=== PATIENT | female | born 2000 | race Caucasian/White ===

== ENCOUNTER 2021-10-19 02:09 | Emergency (ER) | payer OTHER ==
--- NOTE | 2021-10-19 02:29 | ED Physician Documentation ---
PD HPI HEENT - Stated complaint Stated Complaint: SORE THROAT, EAR PX - Chief complaint Chief Complaint: Heent - History obtained from History obtained from: Patient - History of Present Illness Timing - onset: Other (sore throat x 3 days, right ear pain started 20:00 tonight) Timing - details: Gradual onset Location: Right ear Improves: Nothing Worsens: Swalllowing Associated symptoms: No: Fever Recently seen: Not recently seen Review of Systems Constitutional: denies: Fever Ears: reports: Ear pain Throat: reports: Sore throat Respiratory: denies: Dyspnea, Cough PD PAST MEDICAL HISTORY - Past Medical History Past Medical History: No - Past Surgical History Past Surgical History: No - Present Medications Home Medications: Ambulatory Orders Medication Instructions Recorded Confirmed No Known Home Medications 10/19/21 10/19/21 - Allergies Allergies/Adverse Reactions: Allergies Allergy/AdvReac Type Severity Reaction Status Date / Time No Known Drug Allergies Allergy Verified 10/19/21 02:22 - Social History Does the pt smoke?: No Smoking Status: Never smoker Does the pt drink ETOH?: Yes Does the pt have substance abuse?: No - Immunizations Immunizations are current?: Yes PD ED PE NORMAL - Vitals Vital signs reviewed: Yes - General General: Alert and oriented X 3, No acute distress, Well developed/nourished PD ED PE EXPANDED - HEENT HEENT: Ears normal, Pharyngeal erythema, Swollen tonsils (predominantly right- sided swelling in posterior oropharynx) Results - Vitals Vitals: Oxygen O2 Source Room air - Labs Labs: Microbiology 10/19/21 02:18 Group A Strep Throat Culture - Final Throat MIXED OROPHARYNGEAL CORINNE PRESENT. NO BETA STREP PRESENT IN CULTURE. Laboratory Tests 10/19/21 02:18 Group A Strep Rapid Negative PD MEDICAL DECISION MAKING - ED course Complexity details: reviewed results, considered differential, d/w patient ED course: rapid strep negative. Result d/w patient. She is given decadron, ibuprofen, and take-home vicodin. Departure - Departure Disposition: 01 Home, Self Care Clinical Impression: Pharyngitis Condition: Good Instructions: ED Pharyngitis Viral Report Pending Comments: your strep test was negative tonight. At this point the most likely explanation for your symptoms (sore throat and ear pain) is a viral infection. There is no specific treatment (such as an antibiotic). You were given a one-time dose of steroid (decadron) tonight which often helps with the swelling and pain of pharyngitis; it takes several hours to start to take effect. You were also given ibuprofen which should improve the symptoms within the following hour. If the ibuprofen does not provide adequate pain relief, you can take the hydrocodone/acetaminophen provided (one tablet every 6 hours as needed for pain). Discharge Date/Time: 10/19/21 03:18
[2021-10-19 02:41] LABS: RAPID STREP SCREEN Negative (Negative)
[2021-10-19] MEDS ORDERED: DEXAMETHASONE 10 MG/ML VIAL PO STA (02:51)
[2021-10-19] MEDS ORDERED: CHERRY SYRUP 10 ML UDC PO ONE (02:51)
[2021-10-19] MEDS ORDERED: IBUPROFEN 600 MG TABLET PO STA (03:04)
[2021-10-19] MEDS ORDERED: HYDROcod/ACET 5/325 Prepack 4 PO STA (03:04)
[2021-10-19 03:18] VITALS: BP 122/75
== END 2021-10-19 03:18 | disposition home or self-care (01) ==
LOC: ED 02:09
DX: J02.9 Acute pharyngitis, unspecified (principal)
CPT/HCPCS: 87070; 87430; 99282; 99283; A9270